=== PATIENT | female | born 1950 | race Caucasian/White ===

== ENCOUNTER 2023-12-12 15:34 | Emergency (ER) | payer SELFPAY ==
[2023-12-12 15:42] VITALS: BP 114/68
[2023-12-12 16:18] LABS: % Basophils 0.4 % (0-2); % Eosinophils 0.7 % (0-6); % Immature Granulocytes 0.9 % (0-0.5); % Lymphocytes 25.5 % (20.5-51.1); % Monocytes 8.3 % (1.7-9.3); % Neutrophils 64.2 % (42.2-75.2); Absolute Eosinophils 0.1 10^3/uL (0-0.7); Absolute Immature Granulocytes 0.1 10^3/uL (0-0.05); Absolute Lymphocytes 2.1 10^3/uL (1.2-3.4); Absolute Monocytes 0.7 10^3/uL (0.1-0.6); Absolute Neutrophils 5.3 10^3/uL (1.4-6.5); Hematocrit 38.2 % (37.0-47.0); Mean Corpuscular Hgb 31.4 pg (27.0-31.0); Mean Corpuscular Volume 92.3 fL (81.0-99.0); Mean Platelet Volume 10.3 fL (7.4-10.4); Nucleated Red Blood Cells % 0 %; Platelet Count 283 10^3/uL (130-400); Red Blood Cell Count 4.14 10^6/uL (4.20-5.40); Red Cell Dist. Width 13.6 % (11.5-14.5); White Blood Cell Count 8.2 10^3/uL (4.8-10.8)
[2023-12-12 16:28] LABS: ALT (SGPT) 18 U/L (0-35); AST (SGOT) 29 U/L (14-36); Albumin 3.8 g/dl (3.5-5.0); Blood Urea Nitrogen 31 mg/dl (7-17); Carbon Dioxide 22 mmol/L (22-30); Glucose 139 mg/dl (70-99); Total Bilirubin 0.4 mg/dl (0.2-1.3); Total Protein 6.6 g/dl (6.3-8.2); eGFR > 60.00
[2023-12-12 16:32] LABS: Troponin I < 0.012 ng/ml
[2023-12-12 17:06] LABS: Alkaline Phosphatase 103 U/L (38-126); Calcium 9.5 mg/dl (8.4-10.2); Chloride 111 mmol/L (98-107); Potassium 4.3 mmol/L (3.5-5.1); Sodium 141 mmol/L (135-145)
[2023-12-12 17:41] VITALS: BMI 30.3
[2023-12-12 17:42] VITALS: BP 140/65
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
[2023-12-12] MEDS: TYLENOL 1000 MG PO (18:27)
[2023-12-12] MEDS: MORPHINE SULFATE 2 MG IV (21:06)
[2023-12-12 21:08] VITALS: BP 152/66
[2023-12-12 22:00] VITALS: BP 144/73
== END 2023-12-12 22:18 | disposition short-term general hospital (02) ==
LOC: EMR 15:34
PROVIDERS: Emergency Medicine; EMERGENCY PHYSICIAN Student in an Organized Health Care Education/Training Program; FAMILY PHYSICIAN Emergency Medicine
DX: S22.20XA Unspecified fracture of sternum, initial encounter for closed fracture (principal); V49.40XA Driver injured in collision with unspecified motor vehicles in traffic accident, initial encounter; Y92.410 Unspecified street and highway as the place of occurrence of the external cause; E78.00 Pure hypercholesterolemia, unspecified; E86.0 Dehydration; Z86.018 Personal history of other benign neoplasm
CPT/HCPCS: 99284; 71046; 71260; 80053; 84484; 85025; 93005; Q9967

== ENCOUNTER → 2024-04-09 07:00 | Outpatient (REF) | payer MEDICARE, OTHER, SELFPAY | LOC: WDC 07:00 | PROVIDERS: ATTENDING PHYSICIAN Obstetrics & Gynecology; FAMILY PHYSICIAN Emergency Medicine | DX: Z12.31 Encounter for screening mammogram for malignant neoplasm of breast (principal) | CPT/HCPCS: 77063; 77067 ==

== ENCOUNTER → 2024-05-30 16:34 | Outpatient (REF) | payer MEDICARE, OTHER, SELFPAY | LOC: PAVMRI 16:34 | PROVIDERS: ATTENDING PHYSICIAN Student in an Organized Health Care Education/Training Program; FAMILY PHYSICIAN Emergency Medicine; REFERRING PHYSICIAN Psychiatry & Neurology Neurology | DX: M54.2 Cervicalgia (principal); M48.02 Spinal stenosis, cervical region; M47.812 Spondylosis without myelopathy or radiculopathy, cervical region; M43.12 Spondylolisthesis, cervical region | CPT/HCPCS: 72141 ==

== ENCOUNTER 2024-09-08 08:23 | Emergency (ER) | payer MEDICARE, OTHER, SELFPAY ==
[2024-09-08 08:25] VITALS: BP 143/65
--- NOTE | 2024-09-08 09:21 | ED.GENMED ---
History of Present Illness
General
Chief Complaint: Head Injury
Source: patient
Exam Limitations: none
Time Seen by Provider: 09/08/24 09:17
Nursing documentation reviewed up to this point in time: agreed with
History of Present Illness
History of Present Illness:
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 fell
over and struck left upper scalp on dresser causing laceration. She states she's only here for the laceration as everything else is typical for her. No LOC, not anticoagulated, denies headache or any other injury.
Past History
Past History
ED Past Medical History: Hypercholesterolemia, Psychiatric (Depression) and Other (aucostic neuroma, Ectopic , Chiari Malformation. Brain cyst)
ED Past Surgical History: Orthopedic (Left arm surgery, )
Social History
Tobacco: Non-smoker
Alcohol: None
Personal:
Living: with family
Employment: Disabled (due to her 'balance problems.')
Review of Systems
Review of Systems
Allergies reviewed?: Yes
All Other Systems: ROS reviewed and negative except as documented in HPI and ROS
Constitutional: Denies fever
Respiratory: Denies trouble breathing
Cardiac: Denies chest pain or syncope
ABD/GI: Denies abdominal pain or nausea
Musculoskeletal: Denies neck pain or back pain
Skin: Reports other (cut left scalp)
Neurological: Reports numbness (left side of body, chronic); Denies headache
Phy Exam
Physical Exam
Physical Exam:
GENERAL: No acute distress. A&Ox3.
CONSTITUTIONAL: Afebrile.
EYES: clear, conjunctivae normal
ENMT: moist mucus membranes, Pharynx nl
RESPIRATORY: Regular respirations, nonlabored, lungs clear.
CARDIOVASCULAR: Regular rate and rhythm, no murmurs, no rubs.
GI: Soft, nontender, normal BS
MUSCULOSKELETAL: No spinal bony tenderness. Moves with ease. Well perfused.
SKIN: Warm, dry, pink, 1 cm horizontal laceration left parietal scalp, slow venous oozing
PSYCH: Normal mood and affect. Well kept, interactive and appropriate
NEUROLOGIC: Awake, alert and oriented. No focal neurological deficits
Course
Orders/Labs/Results
Orders:
Orders
09/08/24 09:25
Lidocaine/Epinephrine/Tetracai [Let Topical Anesthetic Gel] 3 ml TOPICAL NOW STA
Vital Signs
Initial and Last Documented VS:
Initial Vital Signs
Temp Pulse Resp BP Pulse Ox
97.5 F 62 16 143/65 98
09/08/24 08:25 09/08/24 08:25 09/08/24 08:25 09/08/24 08:25 09/08/24 08:25
Last Documented Vital Signs
Temp Pulse Resp BP Pulse Ox
97.5 F 62 16 143/65 98
09/08/24 08:25 09/08/24 08:25 09/08/24 08:25 09/08/24 08:25 09/08/24 08:25
Procedures
Laceration Closure
Left parietal scalp:
Status of Wound: clean
Size of Wound in cm: 1
Description of Wound Edges: sharp
Preparation: cleaned with saline
Anesthesia: Topical-LET
Revision/Debridement: routine- no revision
Type of Closure: Dermabond-skin glue
MDM/Problems Addressed
Differential Diagnosis Includes:
concussion, laceration
MDM/Problems Addressed:
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 fell
over and struck left upper scalp on dresser causing laceration. She states she's only here for the laceration as everything else is typical for her. No LOC, not anticoagulated, denies headache or any other injury.
Wound cleansed and edges well approximated with wound glue
No new neuro abnormalities
Pt states she's had Tdap within 5 years.
No sign of concussion.
*Critical Care Note
Total Time (30-74mins, 75-104mins- exclusive of procedures): Not Applicable
ED Attending Note
-
Portions of this chart may have been created with voice recognition software.� Occasional wrong word or��sound alike� substitutions may have occurred due to the inherent limitations of voice recognition software.
Discharge Plan
Departure
Patient Disposition: Home (Routine Discharge)
Date of Disposition: 09/08/24
Time of Disposition: 10:01
Patient with high blood pressure during this ER visit?: No
Condition: Good
Discharge Problem:
Fall from slip, trip, or stumble, Laceration of scalp
Instructions: Laceration Repair With Glue (DC), Minor Head Injury (DC)
Prescriptions:
No Action
oxycodone-acetaminophen 5 MG/325 MG tablet
1 tab PO Q4HPRN PRN (Reason: pain) Qty: 20 0RF
aspirin 81 MG tablet,delayed release (DR/EC)
81 mg PO HS
simvastatin 40 MG tablet
40 mg PO QPM
multivitamin 1 EACH capsule
1 ea PO DAILY
CALCIUM
600 mg PO TID
Referrals:
Donna Quintana MD [Family Provider] - As needed
Activity Restrictions/Additional Instructions:
As we discussed, it takes about 7 days for this area to heal. You may briefly wet the area in the shower after 24 hours, just do not rub it or apply any ointments.
The glue will slough off within the next 2 weeks
Seek medical care immediately for vomiting more than twice in 1 hour, confusion or headache that gets worse and worse despite Tylenol or ibuprofen.
Interventions
Interventions:
*Risk Screen - Suicide Last Done: 09/08/24 08:25
*General Assessment Last Done: 09/08/24 09:49
*Neglect/Abuse Screening Last Done: 09/08/24 08:25
ED- Fall Risk Assessment Last Done: 09/08/24 10:28
*ED COVID-19 Vaccine History Last Done: 09/08/24 10:28
*Nursing Disposition Last Done: 09/08/24 10:28
ED- Neurological Assessment Last Done: 09/08/24 09:49
ED-Skin Assessment Last Done: 09/08/24 09:49
Discharge Date and Time
Discharge Date/Time: 09/08/24 10:29
Print Language: NIUEAN
[2024-09-08] MEDS: LET TOPICAL ANESTHETIC GEL 3 ML TOPICAL (09:33)
== END 2024-09-08 10:29 | disposition home or self-care (01) ==
LOC: EMR 08:23
PROVIDERS: EMERGENCY PHYSICIAN Emergency Medicine; FAMILY PHYSICIAN Emergency Medicine
DX: S01.01XA Laceration without foreign body of scalp, initial encounter (principal); W01.190A Fall on same level from slipping, tripping and stumbling with subsequent striking against furniture, initial encounter; E03.9 Hypothyroidism, unspecified; E78.00 Pure hypercholesterolemia, unspecified; Z86.018 Personal history of other benign neoplasm; Q07.00 Arnold-Chiari syndrome without spina bifida or hydrocephalus
CPT/HCPCS: 12001; 99282

== ENCOUNTER → 2024-10-02 07:21 | Outpatient (REF) | payer MEDICARE, OTHER, SELFPAY | LOC: MRI 3T 07:21 | PROVIDERS: ATTENDING PHYSICIAN Otolaryngology; FAMILY PHYSICIAN Emergency Medicine | DX: R42 Dizziness and giddiness (principal) | CPT/HCPCS: 70553; A9575 ==

== ENCOUNTER → 2025-06-10 09:38 | Outpatient (REF) | payer MEDICARE, OTHER, SELFPAY | LOC: RAD 09:38 | PROVIDERS: ATTENDING PHYSICIAN Internal Medicine; FAMILY PHYSICIAN Emergency Medicine | DX: M81.0 Age-related osteoporosis without current pathological fracture (principal) | CPT/HCPCS: 77080 ==